=== PATIENT | female | born 1985 | race Caucasian/White ===

== ENCOUNTER 2019-03-05 11:49 | Day surgery (SDC) | payer BC ==
[~2019-03-05 11:49] MED LIST: Lactated Ringers 1,000 ML IV ONE; Sensorcaine 0.25% 10 ML ONE
[2019-03-05] MEDS ORDERED: Lactated Ringers 1,000 ML IV ONE (11:58)
[2019-03-05] MEDS ORDERED: Lactated Ringers 1,000 ML IV SCH (12:00)
[2019-03-05 12:22] VITALS: O2SAT 100
[2019-03-05] MEDS ORDERED: DIPRIVAN 200 MG/20 ML IV ONE (14:47)
[2019-03-05] MEDS ORDERED: Zemuron 100 MG/10 ML ONE (14:47)
[2019-03-05] MEDS ORDERED: SUBLIMAZE 100 MCG/2 ML ONE ×2 (14:47→16:24)
[2019-03-05] MEDS ORDERED: Versed 2 MG/2 ML Injection ONE (14:47)
[2019-03-05] MEDS ORDERED: Decadron 4 MG INJ ONE (14:57)
[2019-03-05] MEDS ORDERED: Zofran 4 MG/2 ML VIAL ONE (15:15)
[2019-03-05] MEDS ORDERED: TORAdol 30 mg Injection ONE (15:42)
[2019-03-05 18:01] VITALS: BP 123/82; PULSE 59
--- NOTE | 2019-03-08 10:29 | OP ---
SURGERY DATE: 03/05/19 SURGERY TIME: 1446 PREOPERATIVE DIAGNOSIS: 1. LEFT LOWER QUADRANT ABDOMINAL WALL MASS. POSTOPERATIVE DIAGNOSIS: 1. LEFT LOWER QUADRANT ABDOMINAL WALL FASCIAL MASS. 2. LEFT LOWER QUADRANT SUBCUTANEOUS LIPOMATOUS MASS. PROCEDURE: 1. Exploration of left lower quadrant abdominal wall with excision left lower quadrant abdominal wall fascial mass 3 X 3 X 1 cm. 2. Excision left lower quadrant abdominal wall subcutaneous soft tissue mass 5 X 5 X 3 cm. SURGEON: Eda Rossi M.D. ANESTHESIA: General. ESTIMATED BLOOD LOSS: Minimal, less than 10 cc. COMPLICATIONS: None. SPECIMENS: 1. Left lower quadrant abdominal subcutaneous mass 5 X 5 X 3 cm. 2. Abdominal wall fascial mass 3 X 3 X 1 cm. PROCEDURE DETAILS: This is a patient who has a palpable irregularity in her left lower quadrant abdominal wall slightly superior to her skin incision which has been causing her some discomfort. She has had imaging studies showing an irregularity here as well. Risks, benefits, and alternatives regarding exploration of the left lower quadrant abdominal wall with plans to define and take care of this mass have been discussed with the patient. She understands, agrees, and wants to proceed. She was seen in the preoperative area. H&P consent reviewed with her and confirmed. The lesion of concern was palpated with her awake and alert together. We circled it together. She was then brought back to the operative suite. Anesthesia induced. Prepped and draped in the usual sterile fashion. I then took an elliptical portion of the skin and took this down into the subcutaneous tissue. I immediately encountered some irregular fatty tissue consistent with lipomatous mass. This was at the area where she was feeling the irregularity. However, this was slightly softer and more superficial than the lesion, but it was irregular and immediately over the area that she was concerned about so I removed this lipomatous lesion in entirety. This was about 5 X 5 X 3 cm. As we dissected further, we identified the fascia and there was an obvious approximately 3 X 3 X 1 cm stick irregularity continuous with the fascia. I suspect that this is where the fascia had been previously closed. The center of this lesion was very hard and consistent with what she was palpating and then surrounding it appeared to be chronically inflamed and scarred. I removed this entire lesion. It was about 3 X 3 X 1 cm in entirety and I sent this to pathology as abdominal left lower quadrant deep fascial mass and of course, since I had to remove this and it was contiguous with the fascia, we did have to take the fascia in this area. So, after removing this, I then carefully closed the fascia with figure of 8, 0 Vicryl sutures. We had good closure of the fascia. We then irrigated and assured hemostasis. Closed Sridhar's with 3-0 Vicryl interrupted sutures. Subcutaneous tissue with buried interrupted 3-0 Vicryl suture and then skin with running 4-0 subcuticular Monocryl suture, steri-strips, and sterile dressing. Patient tolerated the procedure very well. No immediate complications. She is going to follow-up with me for her pathology results. She understands her instructions. Pain prescription has been left and I have discussed the case with her family.
== END 2019-03-05 17:50 | disposition home or self-care (01) ==
LOC: SDC 11:49
PROVIDERS: ATTEND Surgery
DX: D23.5 Other benign neoplasm of skin of trunk (principal)
CPT/HCPCS: 84703; 88304; J1100; J1885; J2250; J2405; J2704; J3010; L0625